=== PATIENT | female | born 1960 | race African-American/Black ===

== ENCOUNTER → 2016-07-09 | Outpatient (CLI) | payer MEDICARE ==
[~2016-07-09] MED LIST: BENADRYL25 M3 PO; NEURONTIN PO; TRAMADOL HCL50 M1 PO
--- NOTE | ~2016-07-09 | XA30 ---
[facility] A Service of [facility] & [facility] RADIOLOGY TEXT RESULTS PATIENT: VANESSA RIVERA LOCATION: [facility] : 60 UNIT #: [id number] AGE: [address]: Roldan Foley MD SEX: F ORDER DR: [id number] [facility]. [place], [place] [address] [id number] O MR#: [id number] Acc #: [id number] NAME: VANESSA RIVERA : 1960 SEX: F STUDY DATE/TIME: 07/09/2016 13:48 [facility] ROOM: STUDY DESCRIPTION: XA Arthrocentesis Major Joint Attending Physician: Roldan Foley M.D. Referring Physician: Roldan Foley M.D. Ordering Physician: Roldan Foley M.D. Primary Care Physician: Poncho Delgadillo Sr., M.D. MEDICAL IMAGING REPORT This report is preliminary unless electronic signature is present EXAM Right hip injection, 07/09/2016 CLINICAL HISTORY Hip pain. PROCEDURE Informed consent was obtained, and a skin site was selected with fluoroscopic guidance. After sterile preparation, draping and local anesthesia, a 22 gauge spinal needle was advanced into the left hip. A tiny amount of Isovue was injected to confirm intraarticular needle tip position followed by injection of 80 mg of Depo-Medrol and 2 mL of Marcaine. Patient tolerated the procedure well and reported pre-procedure pain level of 9 out of 10 and postprocedure pain level of 0 out of 10. IMPRESSION 1. Successful fluoroscopically guided right hip injection with Depo-Medrol and Marcaine. Pre-procedure pain level 9 of 10, postprocedure pain level 0 of 10. 2. Fluoro time 0.2 minutes, single spot image. Dictated by... Austen Johnson M.D. THIS IS AN ELECTRONICALLY VERIFIED REPORT Austen Johnson M.D. at 07/10/2016 3:36 PM DAYO/iman TD: 07/10/2016 03:50 JOB #: [id number] MEDICAL IMAGING REPORT [facility] A Service of [facility] & [facility] RADIOLOGY TEXT RESULTS PATIENT: VANESSA RIVERA LOCATION: [facility] #: [id number] : 60 UNIT #: [id number] AGE: [address]: Roldan Foley MD SEX: F ORDER DR: COPY
== END | disposition home or self-care (01) ==
LOC: CIVR 13:07
PROC: 3E0U3BZ Introduction of Anesthetic Agent into Joints, Percutaneous Approach (ICD-10-PCS; principal; 2016-07-09)
PROC: 3E0U33Z Introduction of Anti-inflammatory into Joints, Percutaneous Approach (ICD-10-PCS; 2016-07-09)
DX: M25.551 Pain in right hip (principal)
CPT/HCPCS: 77002; J1030; Q9966

== ENCOUNTER 2016-08-09 18:54 | Emergency (ER) | payer MEDICARE ==
--- NOTE | ~2016-08-09 | CT4 ---
[facility] A Service [facility] RADIOLOGY TEXT RESULTS PATIENT: VANESSA RIVERA LOCATION: [facility] : 60 UNIT #: [id number] AGE: [address]: Eliza Ha MD SEX: F ORDER DR: [id number] [address] [address] [id number] E MR#: [id number] Acc #: [id number] NAME: VANESSA RIVERA : 1960 SEX: F STUDY DATE/TIME: 08/09/2016 18:16 UNIT: [facility] ROOM: STUDY DESCRIPTION: CT Abd and Pelv Wo Cont Attending Physician: Eliza Ha M.D. Ordering Physician: Stefano Davis M.D. Primary Care Physician: Poncho Delgadillo Sr., M.D. MEDICAL IMAGING REPORT This report is preliminary unless electronic signature is present EXAM CT abdomen and pelvis without contrast HISTORY Left side abdomen pain for 5 days. No injury. TECHNIQUE This CT exam was performed with one or more of the following radiation dose reduction techniques: automatic exposure control, adjustment of mA and/or kV according to patient size, and iterative reconstruction. FINDINGS CT abdomen and pelvis was performed without contrast CT abdomen: The lung bases are clear. The liver, gallbladder, spleen, pancreas, and adrenal glands are normal. Nonspecific mild right perinephric stranding, but no hydronephrosis. No bowel dilatation. Lower lumbar spinal fusion. CT pelvis: The uterus and adnexa are unremarkable. Urinary bladder is normal. No free fluid or bowel dilatation. IMPRESSION 1. No acute findings. 2. Mild nonspecific right perinephric stranding but no hydronephrosis. No renal calculi. 3. Lower lumbar spinal fusion. Dictated by... Marco Parks M.D. [facility] A Service [facility] RADIOLOGY TEXT RESULTS PATIENT: VANESSA RIVERA LOCATION: [facility] : 60 UNIT #: [id number] AGE: [address]: Eliza Ha MD SEX: F ORDER DR: THIS IS AN ELECTRONICALLY VERIFIED REPORT Marco Parks M.D. at 08/10/2016 11:31 PM Deann TD: 08/10/2016 13:18 JOB #: [id number] MEDICAL IMAGING REPORT Page 1 of 1 COPY
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
--- NOTE | ~2016-08-09 | CR72 ---
[facility] A Service of [facility] & [facility] RADIOLOGY TEXT RESULTS PATIENT: VANESSA RIVERA LOCATION: [facility] : 60 UNIT #: [id number] AGE: [address]: Eliza Ha MD SEX: F ORDER DR: [id number] [facility] [address] [place], [place] [address] [id number] E MR#: [id number] Acc #: [id number] NAME: VANESSA RIVERA : 1960 SEX: F STUDY DATE/TIME: 08/09/2016 18:22 UNIT: [facility] ROOM: STUDY DESCRIPTION: CR Chest Single View Portable Attending Physician: Eliza Ha M.D. Ordering Physician: Stefano Davis M.D. Primary Care Physician: Poncho Delgadillo Sr., M.D. MEDICAL IMAGING REPORT This report is preliminary unless electronic signature is present EXAM Single view of the chest dated 08/09/2016 at 18:22 hours. COMPARISON Single view chest dated 04/07/03. HISTORY Headache, fever and diarrhea for 2 days. FINDINGS Single view of the chest was obtained. Lungs are well-aerated. Heart and mediastinum are within normal limits. Postoperative changes are in bilateral humeral heads likely relating to rotator cuff repair. Dictated by... Mauro Kapadia M.D. THIS IS AN ELECTRONICALLY VERIFIED REPORT Mauro Kapadia M.D. at 08/11/2016 1:42 PM CPR/ea TD: 08/10/2016 12:23 JOB #: [id number] MEDICAL IMAGING REPORT Page 1 of 1 COPY
[2016-08-09 18:13] LABS: BASOPHIL# 0.1 X10e3 (0-0.3); BASOPHIL% 0.5 % (0-2.5); EOSINOPHIL% 0.1 % (0.0-7.0); HEMATOCRIT 36.7 % (35.0-45.0); HEMOGLOBIN 12.2 gm/dL (12.0-16.0); LYMPHOCYTE# 2.7 X10e3 (1.0-3.5); LYMPHOCYTE% 19.1 % (17.0-45.0); MEAN CELL VOLUME 81.5 FL (83-96); MEAN CORPUSCULAR HEMOGLOBIN 27.2 PG (28-34); MEAN CORPUSCULAR HGB CONC 33.4 g/dL (30-36); MEAN PLATELET VOLUME 7.7 FL (6.5-11.5); MONOCYTE# 1.7 X10e3 (0-1.0); MONOCYTE% 12.2 % (3.0-12.0); NEUTROPHIL# 9.6 X10e3 (1.5-7.1); NEUTROPHIL% 68.1 % (40-75); PLATELET COUNT 223 X10e3 (140-420); RED CELL DISTRIBUTION WIDTH 13.3 % (11.0-15.5)
[2016-08-09 18:15] LABS: DIFF IND NO
[2016-08-09 18:42] LABS: ALBUMIN SERUM 3.6 g/dL (3.5-5.0); BILIRUBIN, DIRECT 0.1 mg/dL (0.0-0.2); BILIRUBIN,INDIRECT 0.6 mg/dL (0.0-0.9); BILIRUBIN,TOTAL 0.7 mg/dL (0.2-2.0); CALCIUM SERUM 8.8 mg/dL (8.4-10.2); POTASSIUM 3.8 mmol/L (3.5-5.1); PROTEIN TOTAL SERUM 7.8 g/dL (6.0-8.3)
[2016-08-09 18:57] LABS: URINE SOURCE CLEAN CATCH
[2016-08-09 19:02] LABS: URINE APPEARANCE CLOUDY; URINE BILIRUBIN NEG (NEG); URINE BLOOD 2+ (NEG); URINE COLOR YELLOW; URINE GLUCOSE NEG (NEG); URINE KETONE TRACE (NEG); URINE LEUKOCYTE ESTERASE 2+ (NEG); URINE NITRATE POS (NEG); URINE PROTEIN 1+ (NEG); URINE SPECIFIC GRAVITY 1.015 (1.003-1.035); URINE UROBILINOGEN 0.2 MG/DL (NEG)
[2016-08-09 19:05] LABS: CULTURE INDICATED? YES; URINE BACTERIA AUWI 4+ (NEGATIVE); URINE SQUAMOUS EPITHELIAL CELL FEW /[HPF]; UWBCS1 AUWI 25-50 (0-5)
[2016-08-09 19:23] LABS: INFLUENZA A NEG (NEG); INFLUENZA B NEG (NEG)
== END 2016-08-09 20:27 | disposition home or self-care (01) ==
LOC: CED 18:54
PROVIDERS: Emergency Medicine
DX: R51 Headache (principal); N39.0 Urinary tract infection, site not specified; R50.9 Fever, unspecified; F17.200 Nicotine dependence, unspecified, uncomplicated
CPT/HCPCS: 36415; 70450; 71010; 74176; 80048; 80076; 81003; 83605; 85025; 87040; 87086; 87088; 87186; 87651; 87804; 96361; 96365; 96375; 99284; J0696; J0780; J1200; J1885

== ENCOUNTER → 2016-11-07 | Outpatient (CLI) | payer MEDICARE ==
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
== END | disposition home or self-care (01) ==
LOC: CMRI 19:45
DX: M75.101 Unspecified rotator cuff tear or rupture of right shoulder, not specified as traumatic (principal); M19.011 Primary osteoarthritis, right shoulder; Z98.890 Other specified postprocedural states
CPT/HCPCS: 73221